=== PATIENT | male | born 1985 | race Caucasian/White ===

== ENCOUNTER 2018-09-01 16:01 | Emergency (ER) | payer SELFPAY ==
[~2018-09-01] VITALS: Ht 175.3 cm; Wt 81.6 kg
--- NOTE | 2018-09-01 16:36 | ED Abdominal Pain ---
General Chief Complaint: Abdominal/GI Problems Stated Complaint: VOMITING, LOOSE STOOL Source of Information: Patient, RN Notes Reviewed Exam Limitations: No Limitations History of Present Illness Date Seen by Provider: September 01, 2018 Time Seen by Provider: 16:22 Allergies and Home Medications Allergies Coded Allergies: acetaminophen (Verified Allergy, Unknown, swelling, 09/01/18) Past Umsqapn-Gwdevt-Wqubez Hx Patient Social History Recent Foreign Travel: No Contact w/Someone Who Travel: No Physical Exam Vital Signs Vital Signs - First Documented 09/01/18 16:12 Temp 101.6 Pulse 94 Resp 18 B/P (MAP) 133/81 (98) Pulse Ox 95 O2 Delivery Room Air Capillary Refill : Height/Weight/BMI Height: '" Weight: lbs. oz. kg; BMI Method: Focused Exam Lactate Level 09/01/18 16:45: Lactic Acid Level 1.13 Lactic Acid Level Laboratory Tests Test 09/01/18 16:45 Lactic Acid Level 1.13 MMOL/L (0.50-2.00) Progress/Results/Core Measures Results/Orders Lab Results Laboratory Tests Test 09/01/18 16:34 09/01/18 16:45 Range/Units Urine Color YELLOW Urine Clarity CLEAR Urine pH 6.2 5-9 Urine Specific Gibson 1.025 H 1.016-1.022 Urine Protein TRACE NEGATIVE Urine Glucose (UA) NEGATIVE NEGATIVE Urine Ketones 1+ H NEGATIVE Urine Nitrite NEGATIVE NEGATIVE Urine Bilirubin 1+ H NEGATIVE Urine Urobilinogen 1.0 NORMAL MG/DL Urine Leukocyte Esterase NEGATIVE NEGATIVE Urine RBC (Auto) NEGATIVE NEGATIVE Urine RBC 0-2 /HPF Urine WBC 0-2 /HPF Urine Squamous Epithelial Cells 0-2 /HPF Urine Crystals NONE /LPF Urine Bacteria TRACE /HPF Urine Casts NONE /LPF Urine Mucus SMALL H /LPF Urine Culture Indicated NO Urine Opiates Screen NEGATIVE NEGATIVE Urine Oxycodone Screen NEGATIVE NEGATIVE Urine Methadone Screen NEGATIVE NEGATIVE Urine Propoxyphene Screen NEGATIVE NEGATIVE Urine Barbiturates Screen NEGATIVE NEGATIVE Ur Tricyclic Antidepressants Screen NEGATIVE NEGATIVE Urine Phencyclidine Screen NEGATIVE NEGATIVE Urine Amphetamines Screen NEGATIVE NEGATIVE Urine Methamphetamines Screen NEGATIVE NEGATIVE Urine Benzodiazepines Screen POSITIVE H NEGATIVE Urine Cocaine Screen NEGATIVE NEGATIVE Urine Cannabinoids Screen POSITIVE H NEGATIVE White Blood Count 5.9 4.3-11.0 10^3/uL Red Blood Count 4.79 4.35-5.85 10^6/uL Hemoglobin 15.6 13.3-17.7 G/DL Hematocrit 45 40-54 % Mean Corpuscular Volume 94 80-99 FL Mean Corpuscular Hemoglobin 33 25-34 PG Mean Corpuscular Hemoglobin Concent 35 32-36 G/DL Red Cell Distribution Width 13.2 10.0-14.5 % Platelet Count 118 L 130-400 10^3/uL Mean Platelet Volume 12.1 H 7.4-10.4 FL Neutrophils (%) (Auto) 80 H 42-75 % Lymphocytes (%) (Auto) 9 L 12-44 % Monocytes (%) (Auto) 10 0-12 % Eosinophils (%) (Auto) 0 0-10 % Basophils (%) (Auto) 1 0-10 % Neutrophils # (Auto) 4.8 1.8-7.8 X 10^3 Lymphocytes # (Auto) 0.5 L 1.0-4.0 X 10^3 Monocytes # (Auto) 0.6 0.0-1.0 X 10^3 Eosinophils # (Auto) 0.0 0.0-0.3 10^3/uL Basophils # (Auto) 0.0 0.0-0.1 10^3/uL Sodium Level 134 L 135-145 MMOL/L Potassium Level 3.8 3.6-5.0 MMOL/L Chloride Level 95 L 98-107 MMOL/L Carbon Dioxide Level 21 21-32 MMOL/L Anion Gap 18 H 5-14 MMOL/L Blood Urea Nitrogen 12 7-18 MG/DL Creatinine 0.96 0.60-1.30 MG/DL Estimat Glomerular Filtration Rate > 60 BUN/Creatinine Ratio 13 Glucose Level 100 70-105 MG/DL Lactic Acid Level 1.13 0.50-2.00 MMOL/L Calcium Level 9.0 8.5-10.1 MG/DL Corrected Calcium 8.5-10.1 MG/DL Magnesium Level 1.8 1.8-2.4 MG/DL Total Bilirubin 0.5 0.1-1.0 MG/DL Aspartate Amino Transf (AST/SGOT) 28 5-34 U/L Alanine Aminotransferase (ALT/SGPT) 17 0-55 U/L Alkaline Phosphatase 53 40-136 U/L Troponin T < 6 <=15 NG/L Total Protein 7.4 6.4-8.2 GM/DL Albumin 4.6 H 3.2-4.5 GM/DL Lipase 23 8-78 U/L My Orders Orders - MAYCOL CHRISTIAN DO Ed Iv/Invasive Line Start (09/01/18 16:37) Ekg Tracing (09/01/18 16:37) Cbc With Automated Diff (09/01/18 16:37) Comprehensive Metabolic Panel (09/01/18 16:37) Fibrin Degradation Products (09/01/18 16:37) Drug Screen Stat (Urine) (09/01/18 16:37) Lactic Acid Analyzer (09/01/18 16:37) Lipase (09/01/18 16:37) Magnesium (09/01/18 16:37) Ua Culture If Indicated (09/01/18 16:37) Blood Culture (09/01/18 16:37) Troponin T (09/01/18 16:37) Chest Pa/Lat (2 View) (09/01/18 16:39) Lactated Ringers (Lr 1000 Ml Iv Solution (09/01/18 16:45) Ketorolac Injection (Toradol Injection) (09/01/18 16:45) Ketorolac Injection (Toradol Injection) (09/01/18 16:50) Lactated Ringers (Lr 1000 Ml Iv Solution (09/01/18 16:50) Ciprofloxacin Tablet (Cipro Tablet) (09/01/18 21:00) Dexamethasone Injection (Decadron Inject (09/01/18 18:00) Medications Given in ED Current Medications Medications Dose Ordered Sig/Amol Route Start Time Stop Time Status Last Admin Dose Admin Ketorolac Tromethamine 30 mg STK-MED ONCE .ROUTE 09/01/18 16:50 09/01/18 16:55 DC 09/01/18 16:57 15 MG Lactated Ringer's 1,000 ml @ ud STK-MED ONCE IV 09/01/18 16:50 09/01/18 16:59 DC 09/01/18 17:01 999 MLS/HR Vital Signs/I&O 09/01/18 16:12 Temp 101.6 Pulse 94 Resp 18 B/P (MAP) 133/81 (98) Pulse Ox 95 O2 Delivery Room Air Initial ECG Impression Date: September 01, 2018 Initial ECG Impression Time: 17:09 Initial ECG Rate: 92 Initial ECG Rhythm: Normal Sinus Initial ECG Intervals: Normal Initial ECG Impression: Nonspecific Changes (borderline T abnormalities, inferior leads) Initial ECG Comparisson: No Previous ECG Available Diagnostic Imaging Diagonstic Imaging: Xray Plain Films/CT/US/NM/MRI: chest (NAD) Departure Impression Primary Impression: Nausea and vomiting Additional Impressions: Abdominal pain Fever AGE (acute gastroenteritis) Disposition: 01 HOME, SELF-CARE Condition: Stable Departure-Patient Inst. Decision time for Depature: 18:07 Referrals: [facility] [place] Instructions: Fever, Adult (DC), Nausea and Vomiting, Adult, Nausea and Vomiting, Adult (DC), Dehydration, Adult (DC) Scripts Ondansetron (Ondansetron Odt) 4 Mg Tab.rapdis 4 MG PO Q6H PRN for NAUSEA/VOMITING, #10 TAB 0 Refills Prov: MAYCOL CHRISTIAN DO 09/01/18 Ciprofloxacin HCl (Ciprofloxacin HCl) 500 Mg Tablet 500 MG PO BID, #5 TAB 0 Refills Prov: MAYCOL CHRISTIAN DO 09/01/18 MAYCOL CHRISTIAN DO September 01, 2018 16:36
[2018-09-01] MEDS ORDERED: LACTATED RINGERS 1,000 ML IV SCH (16:45)
[2018-09-01] MEDS ORDERED: KETOROLAC 30 MG/ML VIAL IVP ONE (16:45)
[2018-09-01] MEDS ORDERED: KETOROLAC 30 MG/ML VIAL ONE (16:50)
[2018-09-01] MEDS ORDERED: LACTATED RINGERS 1,000 ML IV ONE (16:50)
--- NOTE | 2018-09-01 17:26 | Diagnostic Imaging Report ---
CLINICAL INDICATION: Patient with cough and abdominal pain. EXAM: Chest x-ray PA and lateral views. COMPARISONS: None. FINDINGS: Lungs/pleura: Lungs are clear. There is no pneumothorax. There is no pleural effusion. Mediastinum: Unremarkable. Pulmonary vasculature: Unremarkable. Heart: Unremarkable. Bones/extrathoracic soft tissue: Unremarkable. IMPRESSION: There is no radiographic evidence of acute cardiopulmonary process. Dictated by: Dictated on workstation # [id number]
[2018-09-01 17:39] LABS: BILIRUBIN,URINE 1+ (NEGATIVE); CLARITY,URINE CLEAR; COLOR,URINE YELLOW; GLUCOSE, URINE (UA) NEGATIVE (NEGATIVE); KETONES,URINE 1+ (NEGATIVE); NITRITE,URINE NEGATIVE (NEGATIVE); PH,URINE 6.2 (5-9); PROTEIN,URINE TRACE (NEGATIVE)
[2018-09-01 17:40] LABS: BACTERIA,URINE TRACE /HPF; LEUKOCYTE ESTERASE ,URINE NEGATIVE (NEGATIVE); RBC,URINE 0-2 /HPF; SQUAMOUS EPITHELIAL CELL,UR 0-2 /HPF; WBC,URINE 0-2 /HPF
[2018-09-01 17:41] LABS: AMPHETAMINE SCREEN, URINE NEGATIVE (NEGATIVE); BARBITURATE SCREEN URINE NEGATIVE (NEGATIVE); BENZODIAZEPINES SCREEN URINE POSITIVE (NEGATIVE); CANNABINOID SCREEN, URINE POSITIVE (NEGATIVE); COCAINE SCREEN URINE NEGATIVE (NEGATIVE); METHADONE STAT NEGATIVE (NEGATIVE); METHAMPHETAMINE SCREEN URINE S NEGATIVE (NEGATIVE); OPIATE SCREEN URINE NEGATIVE (NEGATIVE); OXYCODONE STAT NEGATIVE (NEGATIVE); PROPOXYPHENE STAT NEGATIVE (NEGATIVE); TRICYCLIC ANTIDEPRESSANTS SCRE NEGATIVE (NEGATIVE)
[2018-09-01 17:46] LABS: BASOPHILS % (AUTO) 1 % (0-10); EOSINOPHILS % (AUTO) 0 % (0-10); HEMATOCRIT 45 % (40-54); HEMOGLOBIN 15.6 G/DL (13.3-17.7); LYMPHOCYTES # (AUTO) 0.5 X 10^3 (1.0-4.0); LYMPHOCYTES % (AUTO) 9 % (12-44); MEAN CORPUSCULAR HEMOGLOBIN 33 PG (25-34); MEAN CORPUSCULAR HGB CONC 35 G/DL (32-36); MEAN CORPUSCULAR VOLUME 94 FL (80-99); MEAN PLATELET VOLUME 12.1 FL (7.4-10.4); MONOCYTES # (AUTO) 0.6 X 10^3 (0.0-1.0); MONOCYTES % (AUTO) 10 % (0-12); NEUTROPHILS # (AUTO) 4.8 X 10^3 (1.8-7.8); NEUTROPHILS % (AUTO) 80 % (42-75); PLATELET COUNT 118 10^3/uL (130-400); RED CELL DISTRIBUTION WIDTH 13.2 % (10.0-14.5); WHITE BLOOD COUNT 5.9 10^3/uL (4.3-11.0)
[2018-09-01 17:48] LABS: ALANINE AMINOTRANSFERASE 17 U/L (0-55); ALBUMIN 4.6 GM/DL (3.2-4.5); ALKALINE PHOSPHATASE 53 U/L (40-136); BILIRUBIN,TOTAL 0.5 MG/DL (0.1-1.0); BUN/CREATININE RATIO 13; CARBON DIOXIDE 21 MMOL/L (21-32); CHLORIDE 95 MMOL/L (98-107); CREATININE SERUM 0.96 MG/DL (0.60-1.30); GFR ESTIMATED > 60; GLUCOSE 100 MG/DL (70-105); LIPASE 23 U/L (8-78); MAGNESIUM 1.8 MG/DL (1.8-2.4); POTASSIUM 3.8 MMOL/L (3.6-5.0); SODIUM 134 MMOL/L (135-145); TOTAL PROTEIN 7.4 GM/DL (6.4-8.2)
[2018-09-01] MEDS ORDERED: DEXAMETHASONE 4 MG/ML SDV (DECADRON) IV ONE (18:00)
[2018-09-01] MEDS ORDERED: CIPR500T4 PO (18:09)
[2018-09-01] MEDS ORDERED: ONDA4TAB11 PO (18:09)
[2018-09-01 18:43] VITALS: BP 111/69
[2018-09-01] MEDS ORDERED: CIPROFLOXACIN 500 MG (CIPRO) TABLET PO SCH (21:00)
== END 2018-09-01 18:43 | disposition home or self-care (01) ==
LOC: ER FS 16:03
DX: K52.9 Noninfective gastroenteritis and colitis, unspecified (principal); Z88.5 Allergy status to narcotic agent
CPT/HCPCS: 36415; 71046; 80053; 80306; 81000; 83605; 83690; 83735; 84484; 85025; 85379; 87040; 93005; 96361; 96374; 96375

== ENCOUNTER 2018-09-03 07:17 | Emergency (ER) | payer SELFPAY ==
[~2018-09-03] VITALS: Ht 175.3 cm; Wt 81.6 kg
[~2018-09-03 07:17] MED LIST: CIPR500T4 PO; ONDA4TAB11 PO
[2018-09-03] MEDS ORDERED: RT-ALBUTEROL/IPRATROPIUM 3 ML (DUONEB) VIAL INH ONE (07:45)
[2018-09-03] MEDS ORDERED: KETOROLAC 15 MG/ML VIAL IM ONE (07:45)
[2018-09-03] MEDS ORDERED: BENZONATATE 100 MG (TESSALON) CAPSULE PO SCH (07:45)
[2018-09-03] MEDS ORDERED: DEXAMETHASONE 10 MG/ML (DECADRON) 1 ML VIAL IM ONE (07:45)
--- NOTE | 2018-09-03 07:53 | ED Cough/URI ---
General Chief Complaint: Cough/Cold/Flu Symptoms Stated Complaint: SOB Nursing Triage Note: Was seen here in ED two days ago for cough, nausea and vomiting. Was put on cipro and zofran. States nausea and vomiting is gone but is still having a bad cough that is making his ribs sore and hard to sleep. Sepsis Screen: Possible Sepsis Risk Source: patient Exam Limitations: no limitations History of Present Illness Date Seen by Provider: September 03, 2018 Time Seen by Provider: 07:35 Initial Comments 33-year-old male presents with cough, body aches, generalized malaise. Patient was seen here in this ED 2 days ago with cough, nausea, vomiting he was given a prescription for Cipro and Zofran at that time. Patient reports that the nausea and vomiting have improved but he still has a bad cough. These having difficulty sleeping because of the cough, he has generalized body aches. These cough is so bad that his ribs and stomach hurt. He is girlfriend has similar symptoms but not as bad cough. He also reports she's having a little bit of a sore throat, and he's having some hoarseness. He is not reporting any fevers recently. Allergies and Home Medications Allergies Coded Allergies: acetaminophen (Verified Allergy, Unknown, swelling, 09/03/18) Home Medications Ciprofloxacin HCl 500 Mg Tablet, 500 MG PO BID Prescribed by: MAYCOL CHRISTIAN on 09/01/181808 Ondansetron 4 Mg Tab.rapdis, 4 MG PO Q6H PRN for NAUSEA/VOMITING Prescribed by: MAYCOL CHRISTIAN on 09/01/181808 Patient Home Medication List Home Medication List Reviewed: Yes Review of Systems Review of Systems Constitutional: fever EENTM: hoarseness, other (sore throat ) Respiratory: cough Cardiovascular: no symptoms reported Gastrointestinal: nausea, vomiting Genitourinary: no symptoms reported Musculoskeletal: other (body aches ) Skin: no symptoms reported Psychiatric/Neurological: No Symptoms Reported Past Dzkqaxe-Lkmqsm-Euenha Hx Past Med/Social Hx: Reviewed Nursing Past Med/Soc Hx Patient Social History Alcohol Use: Occasionally Uses Recreational Drug Use: Yes Drug of Choice: marijuana Type Used: Cigarettes 2nd Hand Smoke Exposure: No Recent Foreign Travel: No Contact w/Someone Who Travel: No Recent Infectious Disease Expo: No Recent Hopitalizations: No Physical Abuse: No Sexual Abuse: No Mistreated: No Fear: No Seasonal Allergies Seasonal Allergies: No Past Medical History Surgeries: Yes (hernia repair, Esophageal surgery) Respiratory: No Cardiac: No Neurological: No Genitourinary: No Gastrointestinal: No Musculoskeletal: No Endocrine: No HEENT: No Cancer: No Psychosocial: Yes ADD/ADHD, Anxiety, PTSD, Bipolar, Depression Blood Disorders: No Physical Exam Vital Signs - First Documented 09/03/18 07:23 Temp 100.4 Pulse 103 Resp 18 B/P (MAP) 117/73 (88) Pulse Ox 96 Capillary Refill : Less Than 3 Seconds Height: 5'9.00" Weight: 180lbs. oz. 81.708640mt; BMI Method:Stated General Appearance: WD/WN, no apparent distress Eyes: Bilateral Eye Normal Inspection, Bilateral Eye PERRL HEENT: PERRL/EOMI Neck: lymphadenopathy (R), lymphadenopathy (L) Respiratory: lungs clear, normal breath sounds, no respiratory distress, other (frequent cough ) Cardiovascular: normal peripheral pulses, regular rate, rhythm Gastrointestinal: non tender, soft Neurologic/Psychiatric: alert, oriented x 3 Skin: normal color, warm/dry Progress/Results/Core Measures Suspected Sepsis Recent Fever Within 48 Hours: Yes Infection Criteria Present: Documented Infection New/Unexplained Altered Menta: No Sepsis Screen: Possible Sepsis Risk SIRS Temperature:100.4 Pulse: 103 Respiratory Rate: 18 Blood Pressure 117 /73 Mean: 88 Results/Orders My Orders Orders - BRIAN HENNING DO Dexamethasone Injection (Decadron Inject (09/03/18 07:45) Benzonatate Capsule (Tessalon Perles) (09/03/18 07:45) Albuterol/Ipra Inhalation Soln (Duoneb I (09/03/18 07:45) Svn Small Volume Nebulizer (09/03/18 07:44) Ketorolac Injection (Toradol Injection) (09/03/18 07:45) Vital Signs/I&O 09/03/18 07:23 Temp 100.4 Pulse 103 Resp 18 B/P (MAP) 117/73 (88) Pulse Ox 96 Capillary Refill : Less Than 3 Seconds Blood Pressure Mean: 88 Departure Impression Primary Impression: Influenza-like symptoms Additional Impression: Upper respiratory infection Qualified Codes: J06.9 - Acute upper respiratory infection, unspecified Disposition: 01 HOME, SELF-CARE Condition: Stable Departure-Patient Inst. Referrals: NO,LOCAL PHYSICIAN (PCP) Primary Care Physician Patient Instructions: Cough, Adult (DC), Cough, Runny Nose, and the Common Cold (DC), Viral Upper Respiratory Infection, Adult (DC) Scripts Naproxen (Naprosyn) 500 Mg Tablet 500 MG PO BID, #30 TAB 0 Refills Prov: BRIAN HENNING DO 09/03/18 Benzonatate (TESSALON PERLES) 100 Mg Capsule 100 MG PO TID PRN for COUGH, #30 CAP Prov: BRIAN HENNING DO 09/03/18 BRIAN HENNING DO September 03, 2018 07:53
[2018-09-03] MEDS ORDERED: NAPR-1071 PO (07:56)
[2018-09-03] MEDS ORDERED: BENZ100C18 PO (07:56)
[2018-09-03 08:14] VITALS: BP 117/73
== END 2018-09-03 08:15 | disposition home or self-care (01) ==
LOC: EDUNIT# 07:17 → ER FS 07:19
DX: J06.9 Acute upper respiratory infection, unspecified (principal); R53.81 Other malaise; R11.2 Nausea with vomiting, unspecified; F90.9 Attention-deficit hyperactivity disorder, unspecified type; F41.9 Anxiety disorder, unspecified; F43.10 Post-traumatic stress disorder, unspecified; F31.9 Bipolar disorder, unspecified; F12.10 Cannabis abuse, uncomplicated; Z88.6 Allergy status to analgesic agent; Z98.890 Other specified postprocedural states
CPT/HCPCS: 94640